=== PATIENT | female | born 1960 | race Caucasian/White ===

== ENCOUNTER 2016-10-29 10:48 | Emergency (ER) | payer MEDICARE, OTHER ==
[~2016-10-29 10:48] MED LIST: BENZTROPINE ME0.5 MG PO; CELEBREX 100MG100 MG PO; DIOVAN 80 MG TA80 MG PO; FENOFIBRATE160 MG PO; FISH OIL500 MG PO; GLUCOPHAGE 500500 MG PO; HYDROXYZINE HCL10 MG PO; LASIX40 MG PO; MONTELUKAST SOD10 MG PO; MULTIPLE VITAM1 EACH PO; PROZAC 20 MG CA20 MG PO; SIMVASTATIN20 MG PO; TRAZODONE HCL150 MG PO
[2016-10-29 14:58] LABS: HEMOGLOBIN 11.8 gm/dl (12.3-15.3); RED BLOOD COUNT 4.26 M/UL (4.00-5.10); WHITE BLOOD COUNT 9.7 K/UL (4.5-11.0)
[2016-10-29 15:15] LABS: BUN/CREATININE RATIO 19 (0-10)
== END 2016-10-29 17:13 | disposition home or self-care (01) ==
LOC: ER1 10:48
PROVIDERS: Student in an Organized Health Care Education/Training Program
DX: R60.0 Localized edema (principal); E11.9 Type 2 diabetes mellitus without complications; I10 Essential (primary) hypertension; E03.9 Hypothyroidism, unspecified; M19.90 Unspecified osteoarthritis, unspecified site; Z87.891 Personal history of nicotine dependence; Z79.84 Long term (current) use of oral hypoglycemic drugs; Z79.899 Other long term (current) drug therapy
CPT/HCPCS: 36415; 80053; 81001; 83880; 84443; 85025; 87086; 93005; 96374; 99284; J1940